=== PATIENT | male | born 1935 | race Caucasian/White ===

== ENCOUNTER 2018-09-26 17:59 | Emergency (ER) | payer MEDICARE, OTHER ==
--- NOTE | 2018-09-26 19:02 | EDM.PDOC ---
ED HPI GENERAL MEDICAL PROBLEM - General Chief Complaint: Respiratory Problem Stated Complaint: POSSIBLE PNEUMONIA Time Seen by Provider: 09/26/18 18:50 Source of Information: Reports: Patient, Old Records, RN History Limitations: Reports: No Limitations - History of Present Illness INITIAL COMMENTS - FREE TEXT/NARRATIVE: 83 yo male who lives alone presents with mild SOB, weakness and an occasional cough. He was see twice for this in the clinic. The first time he got an "antibiotic that would not affect his INR", but when he was last seen it was felt that he had progressed from bronchitis to pneumonia so he was switched to doxycycline. He has continued to worsen since then so comes here now. No testing was done while in either of his clinic visits. Onset: Gradual Onset Date: 09/19/18 Duration: Day(s):, Getting Worse Location: Reports: Chest Quality: Reports: Sharp (some L flank area pain ? due to coughing) Severity: Moderate Improves with: Reports: Rest Worsens with: Reports: Movement Context: Reports: Other (see HPI) Associated Symptoms: Reports: Shortness of Breath (mild), Weakness. Denies: Nausea/Vomiting, Rash Treatments [employer] UNDERGROUND: Reports: Other (see below) (Robitussin AC and doxycycline) - Related Data Allergies Allergy/AdvReac Type Severity Reaction Status Date / Time No Known Allergies Allergy Verified 09/26/18 18:37 Home Meds: Home Meds Aspirin [Halfprin] 81 mg PO DAILY 08/14/14 [History] Cetirizine HCl [Zyrtec] 10 mg PO ASDIRECTED PRN 08/14/14 [History] Cinnamon Bark [Cinnamon] 1,000 mg PO BID 08/14/14 [History] Insulin Aspart [NovoLOG] 45 unit SQ WITHMEALSANDBED 08/14/14 [History] Insulin Glarg,Human.Rec.Analog [LantUS] 12 unit SUBCUT DAILY 08/14/14 [History] Isosorbide Mononitrate [Imdur] 60 mg PO DAILY 08/14/14 [History] Metoprolol Tartrate 25 mg PO BID 08/14/14 [History] Multivitamin [Multi-Vitamin Daily] 1 each PO DAILY 08/14/14 [History] Nitroglycerin 0.4 mg SL ASDIRECTED PRN 08/14/14 [History] [place]-3 Fatty Acids [Fish Oil] 1,000 mg PO BID 08/14/14 [History] Rosuvastatin [Crestor] 20 mg PO BEDTIME 08/14/14 [History] Ubidecarenone [Co Q-10] 100 mg PO DAILY 08/14/14 [History] Warfarin [Coumadin] 2.5 mg PO DAILY 08/14/14 [History] Codeine/guaiFENesin [Robitussin AC] 10 ml PO Q4H PRN 09/26/18 [History] Doxycycline [Vibramycin] 1 tab PO BID 09/26/18 [History] Liraglutide [Victoza] 1.2 unit SQ DAILY 09/26/18 [History] Losartan [Cozaar] 50 mg PO BEDTIME 09/26/18 [History] Past Medical History Cardiovascular History: Reports: High Cholesterol, Hypertension Respiratory History: Reports: Pneumonia, Recurrent Neurological History: Reports: TIA Endocrine/Metabolic History: Reports: Diabetes, Type II Dermatologic History: Reports: Benign Melanoma - Past Surgical History HEENT Surgical History: Reports: Tonsillectomy Cardiovascular Surgical History: Reports: Coronary Artery Bypass GI Surgical History: Reports: Appendectomy, Cholecystectomy, Colonoscopy, Hernia , Inguinal Social & Family History - Tobacco Use Smoking Status *Q: Never Smoker ED ROS GENERAL - Review of Systems Review Of Systems: See Below Constitutional: Reports: Malaise, Weakness HEENT: Reports: No Symptoms Respiratory: Reports: Shortness of Breath (mild), Cough. Denies: Wheezing, Pleuritic Chest Pain, Sputum, Hemoptysis Cardiovascular: Reports: No Symptoms Endocrine: Reports: No Symptoms GI/Abdominal: Reports: No Symptoms : Reports: No Symptoms Musculoskeletal: Reports: Other (Rib or intercostal muscle pain L flank) Skin: Reports: No Symptoms Neurological: Reports: No Symptoms ED EXAM, GENERAL - Physical Exam Exam: See Below Exam Limited By: No Limitations General Appearance: Alert, WD/WN, No Apparent Distress Eye Exam: Bilateral Eye: Normal Inspection Ears: Other (hearing aids bilat.) Ear Exam: Bilateral Ear: Auricle Normal Nose: Normal Inspection, Normal Mucosa, No Blood Throat/Mouth: Normal Inspection, Normal Lips, Normal Oropharynx, Normal Voice, No Airway Compromise Head: Atraumatic, Normocephalic Neck: Normal Inspection Respiratory/Chest: No Respiratory Distress, No Accessory Muscle Use, Rhonchi (L anterior chest most audible.). No: Rales, Wheezing Cardiovascular: Regular Rate, Rhythm, No Edema Back Exam: Normal Inspection. No: CVA Tenderness (R), CVA Tenderness (L) Extremities: Normal Inspection, Normal Range of Motion, Non-Tender, No Pedal Edema Neurological: Alert, Oriented, CN II-XII Intact, Normal Cognition, No Motor/ Sensory Deficits Psychiatric: Normal Affect, Normal Mood Skin Exam: Warm, Dry, Intact, Normal Color, No Rash Course - Vital Signs Text/Narrative:: Feeling a lot better after our interventions. Last Recorded V/S: Last Vital Signs Temp 37.4 C 09/26/18 18:48 Pulse 96 09/26/18 18:48 Resp 14 09/26/18 18:48 BP 144/76 H 09/26/18 18:48 Pulse Ox 91 L 09/26/18 18:48 Orthostatic Blood Pressure [ 130/61 Standing] Orthostatic Blood Pressure [ 137/60 Sitting] Orthostatic Blood Pressure [ 130/53 Supine] - Orders/Labs/Meds Orders: Active Orders 24 hr Category Date Time Status Orthostatic Vital Signs [RC] ASDIRECTED Care 09/26/18 21:05 Active Labs: Laboratory Tests 09/26/18 09/26/18 09/26/18 Range/Units 19:10 19:10 19:10 WBC 4.2 L (4.5-11.0) K/uL RBC 4.34 (4.30-5.90) M/uL Hgb 13.1 (12.0-15.0) g/dL Hct 40.0 (40.0-54.0) % MCV 92 (80-98) fL MCH 30 (27-31) pg MCHC 33 (32-36) % Plt Count 267 (150-400) K/uL PT 65.0 H (9.5-12.0) sec INR 6.57 H* (0.80-1.20) Sodium 134 L (140-148) mmol/L Potassium 4.9 (3.6-5.2) mmol/L Chloride 101 (100-108) mmol/L Carbon Dioxide 24 (21-32) mmol/L Anion Gap 13.9 (5.0-14.0) mmol/L BUN 31 H (7-18) mg/dL Creatinine 1.9 H (0.8-1.3) mg/dL Est Cr Clr Drug Dosing 31.48 mL/min Estimated GFR (MDRD) 34 L (>60) Glucose 371 H (74-106) mg/dL Calcium 8.9 (8.5-10.1) mg/dL C-Reactive Protein 0.23 (0.0-0.3) mg/dL Urine Color Urine Appearance Urine pH (4.5-8.0) Ur Specific [place] (1.008-1.030) Urine Protein (NEGATIVE) mg/dL Urine Glucose (UA) (NEGATIVE) mg/dL Urine Ketones (NEGATIVE) mg/dL Urine Occult Blood (NEGATIVE) Urine Nitrite (NEGAITVE) Urine Bilirubin (NEGATIVE) Urine Urobilinogen (NORMAL) mg/dL Ur Leukocyte Esterase (NEGATIVE) Urine RBC (0-5) Urine WBC (0-5) Ur Epithelial Cells Amorphous Sediment Urine Bacteria Urine Mucus 09/26/18 Range/Units 20:55 WBC (4.5-11.0) K/uL RBC (4.30-5.90) M/uL Hgb (12.0-15.0) g/dL Hct (40.0-54.0) % MCV (80-98) fL MCH (27-31) pg MCHC (32-36) % Plt Count (150-400) K/uL PT (9.5-12.0) sec INR (0.80-1.20) Sodium (140-148) mmol/L Potassium (3.6-5.2) mmol/L Chloride (100-108) mmol/L Carbon Dioxide (21-32) mmol/L Anion Gap (5.0-14.0) mmol/L BUN (7-18) mg/dL Creatinine (0.8-1.3) mg/dL Est Cr Clr Drug Dosing mL/min Estimated GFR (MDRD) (>60) Glucose (74-106) mg/dL Calcium (8.5-10.1) mg/dL C-Reactive Protein (0.0-0.3) mg/dL Urine Color Yellow Urine Appearance Clear Urine pH 5.0 (4.5-8.0) Ur Specific [place] 1.020 (1.008-1.030) Urine Protein Trace (NEGATIVE) mg/dL Urine Glucose (UA) >1000 H (NEGATIVE) mg/dL Urine Ketones Negative (NEGATIVE) mg/dL Urine Occult Blood Moderate (NEGATIVE) Urine Nitrite Negative (NEGAITVE) Urine Bilirubin Negative (NEGATIVE) Urine Urobilinogen Normal (NORMAL) mg/dL Ur Leukocyte Esterase Negative (NEGATIVE) Urine RBC 5-10 H (0-5) Urine WBC Not seen (0-5) Ur Epithelial Cells Rare Amorphous Sediment Not seen Urine Bacteria Few Urine Mucus Few Meds: Medications Discontinued Medications Generic Name Dose Route Start Last Admin Trade Name Carlita PRN Reason Stop Dose Admin Sodium Chloride 1,000 mls @ 1,000 mls/hr 09/26/18 19:41 09/26/18 20:09 Normal Saline IV 09/26/18 20:40 1,000 mls/hr .BOLUS ONE Administration Sodium Chloride 1,000 mls @ 1,000 mls/hr 09/26/18 21:24 09/26/18 21:29 Normal Saline IV 09/26/18 22:23 1,000 mls/hr .BOLUS ONE Administration Insulin Human Regular 14 unit 09/26/18 19:42 09/26/18 20:00 Humulin R SUBCUT 09/26/18 19:43 14 unit ONETIME ONE Administration Insulin Human Regular 20 unit 09/26/18 21:16 09/26/18 21:24 Humulin R SUBCUT 09/26/18 21:17 20 unit ONETIME ONE Administration - Radiology Interpretation Free Text/Narrative:: CXR- Departure - Departure Time of Disposition: 23:20 Disposition: Home, Self-Care 01 Condition: Fair Clinical Impression: Elevated blood sugar, Mild dehydration, Bronchitis - Discharge Information *PRESCRIPTION DRUG MONITORING PROGRAM REVIEWED*: No *COPY OF PRESCRIPTION DRUG MONITORING REPORT IN PATIENT LUPE: No Instructions: Hyperglycemia, [id number] Referrals: Gentry Villegas MD [Primary Care Provider] - Forms: ED Department Discharge Additional Instructions: Finish your doxycycline. See your doctor for recheck early next week. Watch your blood sugars closely. Drink ample fluids. Return as needed. - My Orders Last 24 Hours: My Active Orders 09/26/18 21:05 Orthostatic Vital Signs [RC] ASDIRECTED - Assessment/Plan Last 24 Hours: My Active Orders 09/26/18 21:05 Orthostatic Vital Signs [RC] ASDIRECTED
[2018-09-26] MEDS ORDERED: Sodium Chloride 0.9% 1,000 ML IV ONE ×2 (19:41→21:24)
[2018-09-26] MEDS ORDERED: Insulin Regular, Human 100 Units/ML 3 ML Vial SUBCUT ONE ×2 (19:42→21:16)
--- NOTE | 2018-09-26 20:41 | CRLCR ---
CHEST 2 VIEWS INDICATION: Enqax-po-rbbbck and weak. IMPRESSION: Sternotomy. Heart is upper normal size. Vascularity is normal. Lateral view is rotated. Lungs are clear. No pneumothorax or pleural effusion. Dictated by Jaya Ortiz MD @ Sep 26 2018 8:39PM Signed by Dr. Jaya Ortiz @ Sep 26 2018 8:40PM
[2018-09-26 23:44] VITALS: BP 138/64
== END 2018-09-26 23:30 | disposition home or self-care (01) ==
LOC: JP.ED 17:59
DX: J40 Bronchitis, not specified as acute or chronic (principal); E86.0 Dehydration; E11.9 Type 2 diabetes mellitus without complications; I10 Essential (primary) hypertension; E78.00 Pure hypercholesterolemia, unspecified; Z86.73 Personal history of transient ischemic attack (TIA), and cerebral infarction without residual deficits; Z79.4 Long term (current) use of insulin; Z79.82 Long term (current) use of aspirin; Z79.899 Other long term (current) drug therapy
CPT/HCPCS: 36415; 71046; 80048; 81001; 82962; 85027; 85610; 86140; 96360; 96361; 99285; J1815; J7030; 99283

== ENCOUNTER 2021-07-20 11:57 | Emergency (ER) | payer MEDICARE, OTHER ==
[2021-07-20 13:05] LABS: TROPONIN I HIGH SENSITIVITY 24.5 pg/mL (<=60.3)
[2021-07-20 14:31] VITALS: BP 155/74; PULSE 82
== END 2021-07-20 14:31 | disposition home or self-care (01) ==
LOC: JP.ED 11:57
DX: R07.89 Other chest pain (principal); I48.91 Unspecified atrial fibrillation; E78.00 Pure hypercholesterolemia, unspecified; I10 Essential (primary) hypertension; E11.9 Type 2 diabetes mellitus without complications; Z86.73 Personal history of transient ischemic attack (TIA), and cerebral infarction without residual deficits; Z79.82 Long term (current) use of aspirin; Z79.4 Long term (current) use of insulin; Z79.899 Other long term (current) drug therapy; Z79.01 Long term (current) use of anticoagulants
CPT/HCPCS: 36415; 71046; 71046-26; 80048; 84484; 85027; 85379; 93005; 99283; 99285-25

== ENCOUNTER 2021-12-01 20:46 | Emergency (ER) | payer MEDICARE, OTHER ==
[2021-12-01] MEDS ORDERED: Sodium Chloride 0.9% 10 ML Syringe FLUSH PRN (20:59)
[2021-12-01] MEDS ORDERED: Sodium Chloride 0.9% 500 ML IV ONE (23:04)
[2021-12-02 00:04] VITALS: BP 158/72; PULSE 107
[2021-12-02] MEDS ORDERED: Nitrofurantoin Monohydrate/Macrocrystalline 100 MG Cap PO ONE (00:05)
== END 2021-12-02 00:24 | disposition home or self-care (01) ==
LOC: JP.ED 20:46
DX: S00.03XA Contusion of scalp, initial encounter (principal); S30.1XXA Contusion of abdominal wall, initial encounter; N30.01 Acute cystitis with hematuria; E11.22 Type 2 diabetes mellitus with diabetic chronic kidney disease; I12.9 Hypertensive chronic kidney disease with stage 1 through stage 4 chronic kidney disease, or unspecified chronic kidney disease; N18.32 Chronic kidney disease, stage 3b; E87.5 Hyperkalemia; I48.91 Unspecified atrial fibrillation; E78.00 Pure hypercholesterolemia, unspecified; Z86.73 Personal history of transient ischemic attack (TIA), and cerebral infarction without residual deficits; Z79.82 Long term (current) use of aspirin; Z79.4 Long term (current) use of insulin; Z79.01 Long term (current) use of anticoagulants; Z79.899 Other long term (current) drug therapy; W01.198A Fall on same level from slipping, tripping and stumbling with subsequent striking against other object, initial encounter; Y92.008 Other place in unspecified non-institutional (private) residence as the place of occurrence of the external cause
CPT/HCPCS: 36415; 70450; 71045; 80048; 81001; 82947; 85025; 85610; 87086; 87088; 87186; 99284; A9270; J3490; J7040

== ENCOUNTER 2021-12-02 18:24 | Inpatient (IN) | payer MEDICARE, OTHER ==
[2021-12-02] MEDS ORDERED: Sodium Chloride 0.9% 10 ML Syringe FLUSH PRN (20:24)
[2021-12-02] MEDS ORDERED: Ondansetron 4 MG/2 ML SDV IVPUSH ONE (20:26)
[2021-12-02] MEDS ORDERED: cefTRIAXone 1 GM in Sodium Chloride 0.9% 50 ML IV ONE (20:26)
[2021-12-02] MEDS: Sodium Chloride 0.9% 1,000 ML IV ONE ×2 (21:21→23:50)
[2021-12-02 21:35] LABS: ESTIMATED GFR 29 mL/min (>60)
[2021-12-03] MEDS ORDERED: Ondansetron 4 MG Tab.DIS PO PRN (00:45)
[2021-12-03] MEDS ORDERED: Melatonin 3 MG Tab PO PRN (00:45)
[2021-12-03] MEDS ORDERED: Ondansetron 4 MG/2 ML SDV IV PRN (00:45)
[2021-12-03] MEDS ORDERED: Magnesium Hydroxide 400 MG/5 ML Susp 30 ML Cup PO PRN (00:45)
[2021-12-03] MEDS ORDERED: Acetaminophen 325 MG Tab PO PRN (00:45)
[2021-12-03] MEDS ORDERED: Codeine/guaiFENesin 10-100 MG/5 ML Syrup 5 ML Cup PO PRN (00:45)
[2021-12-03] MEDS ORDERED: Pantoprazole 40 MG Vial ONE (00:58)
[2021-12-03] MEDS ORDERED: Pantoprazole 40 MG Vial IV ONE (01:00)
[2021-12-03] MEDS: Sodium Chloride 0.9% 1,000 ML IV SCH ×2 (01:06→09:38)
[2021-12-03] MEDS: Insulin Lispro 100 Unit/ML 3 ML KwikPen SUBCUT SCH ×4 (08:13→21:41)
[2021-12-03] MEDS: Lactobacillus Rhamnosus GG (Probiotic) Cap PO SCH ×2 (09:31→20:07)
[2021-12-03] MEDS: Aspirin 81 MG Tab.EC PO SCH (09:31)
[2021-12-03] MEDS: Isosorbide Mononitrate 30 MG Tab.ER PO SCH (09:32)
[2021-12-03] MEDS: Metoprolol Tartrate 25 MG Tab PO SCH ×2 (09:33→20:09)
[2021-12-03] MEDS: Insulin Glargine,Human Rec. Analog 100 Units/ML 3 ML Pen SUBCUT SCH (10:04)
[2021-12-03] MEDS: Rosuvastatin 10 MG Tab PO SCH (20:07)
[2021-12-03] MEDS: Losartan 25 MG Tab PO SCH (20:09)
[2021-12-03] MEDS: cefTRIAXone 1 GM in Sodium Chloride 0.9% 50 ML IV SCH (20:10)
[2021-12-03] MEDS: Pantoprazole 40 MG Vial IV SCH (20:10)
[2021-12-04] MEDS: Insulin Lispro 100 Unit/ML 3 ML KwikPen SUBCUT SCH ×4 (08:37→21:09)
[2021-12-04] MEDS: Metoprolol Tartrate 25 MG Tab PO SCH ×2 (08:38→20:01)
[2021-12-04] MEDS: Lactobacillus Rhamnosus GG (Probiotic) Cap PO SCH ×2 (08:39→20:03)
[2021-12-04] MEDS: Aspirin 81 MG Tab.EC PO SCH (08:39)
[2021-12-04] MEDS: Isosorbide Mononitrate 30 MG Tab.ER PO SCH (08:39)
[2021-12-04] MEDS: Insulin Glargine,Human Rec. Analog 100 Units/ML 3 ML Pen SUBCUT SCH (08:40)
[2021-12-04] MEDS: Warfarin 2.5 MG Tab PO SCH (13:37)
[2021-12-04] MEDS ORDERED: Albuterol 0.083% 2.5 MG/3 ML Neb Soln NEB PRN (17:47)
[2021-12-04] MEDS: Budesonide 0.5 MG/2 ML Neb Susp NEB SCH (20:01)
[2021-12-04] MEDS: Pantoprazole 40 MG Vial IV SCH (20:01)
[2021-12-04] MEDS: Albuterol/Ipratropium 3.0-0.5 MG/3 ML Neb Soln NEB SCH (20:01)
[2021-12-04] MEDS: cefTRIAXone 1 GM in Sodium Chloride 0.9% 50 ML IV SCH (20:01)
[2021-12-04] MEDS: Losartan 25 MG Tab PO SCH (20:02)
[2021-12-04] MEDS: Rosuvastatin 10 MG Tab PO SCH (20:03)
[2021-12-05] MEDS: Budesonide 0.5 MG/2 ML Neb Susp NEB SCH ×2 (07:07→20:15)
[2021-12-05] MEDS: Albuterol/Ipratropium 3.0-0.5 MG/3 ML Neb Soln NEB SCH ×4 (07:07→20:15)
[2021-12-05] MEDS: Metoprolol Tartrate 25 MG Tab PO SCH ×2 (08:11→20:05)
[2021-12-05] MEDS: Isosorbide Mononitrate 30 MG Tab.ER PO SCH (08:12)
[2021-12-05] MEDS: Aspirin 81 MG Tab.EC PO SCH (08:12)
[2021-12-05] MEDS: Insulin Glargine,Human Rec. Analog 100 Units/ML 3 ML Pen SUBCUT SCH (08:12)
[2021-12-05] MEDS: Lactobacillus Rhamnosus GG (Probiotic) Cap PO SCH ×2 (08:12→20:01)
[2021-12-05] MEDS: Insulin Lispro 100 Unit/ML 3 ML KwikPen SUBCUT SCH ×4 (08:13→21:44)
[2021-12-05] MEDS ORDERED: Insulin Lispro 100 Unit/ML 3 ML KwikPen SUBCUT ONE ×3 (12:24→21:40)
[2021-12-05] MEDS: Warfarin 2.5 MG Tab PO SCH (12:59)
[2021-12-05] MEDS ORDERED: 50% Dextrose in Water 50 ML Syringe IVPUSH PRN (17:35)
[2021-12-05] MEDS ORDERED: Glucagon,Human Recombinant 1 MG Vial IM PRN (17:35)
[2021-12-05] MEDS: Pantoprazole 40 MG Tab.CR PO SCH (17:50)
[2021-12-05] MEDS: Rosuvastatin 10 MG Tab PO SCH (20:01)
[2021-12-05] MEDS: Losartan 25 MG Tab PO SCH (20:02)
[2021-12-05] MEDS: Fluticasone NASAL Spray 16 GM Bottle NASBOTH SCH (20:05)
[2021-12-05] MEDS: cefTRIAXone 1 GM in Sodium Chloride 0.9% 50 ML IV SCH (20:06)
[2021-12-06] MEDS: Albuterol/Ipratropium 3.0-0.5 MG/3 ML Neb Soln NEB SCH ×4 (06:58→21:23)
[2021-12-06] MEDS: Budesonide 0.5 MG/2 ML Neb Susp NEB SCH ×2 (06:58→21:24)
[2021-12-06] MEDS: Lactobacillus Rhamnosus GG (Probiotic) Cap PO SCH ×2 (08:30→21:25)
[2021-12-06] MEDS: Metoprolol Tartrate 25 MG Tab PO SCH ×2 (08:30→21:28)
[2021-12-06] MEDS: Isosorbide Mononitrate 30 MG Tab.ER PO SCH (08:33)
[2021-12-06] MEDS: Fluticasone NASAL Spray 16 GM Bottle NASBOTH SCH ×2 (08:33→21:25)
[2021-12-06] MEDS: Aspirin 81 MG Tab.EC PO SCH (08:33)
[2021-12-06] MEDS: Insulin Lispro 100 Unit/ML 3 ML KwikPen SUBCUT SCH ×5 (08:38→21:29)
[2021-12-06] MEDS: Insulin Glargine,Human Rec. Analog 100 Units/ML 3 ML Pen SUBCUT SCH (08:39)
[2021-12-06] MEDS: Warfarin 2.5 MG Tab PO SCH (13:18)
[2021-12-06] MEDS: Pantoprazole 40 MG Tab.CR PO SCH (17:53)
[2021-12-06] MEDS: Losartan 25 MG Tab PO SCH (21:25)
[2021-12-06] MEDS: Rosuvastatin 10 MG Tab PO SCH (21:28)
[2021-12-06] MEDS: cefTRIAXone 1 GM in Sodium Chloride 0.9% 50 ML IV SCH (21:46)
[2021-12-06] MEDS: Cephalexin 250 MG Cap PO SCH (22:38)
[2021-12-07] MEDS: Albuterol/Ipratropium 3.0-0.5 MG/3 ML Neb Soln NEB SCH ×2 (06:58→10:32)
[2021-12-07] MEDS: Budesonide 0.5 MG/2 ML Neb Susp NEB SCH (06:58)
[2021-12-07 07:24] VITALS: BP 111/65
[2021-12-07] MEDS: Lactobacillus Rhamnosus GG (Probiotic) Cap PO SCH (08:20)
[2021-12-07] MEDS: Isosorbide Mononitrate 30 MG Tab.ER PO SCH (08:20)
[2021-12-07] MEDS: Aspirin 81 MG Tab.EC PO SCH (08:20)
[2021-12-07] MEDS: Fluticasone NASAL Spray 16 GM Bottle NASBOTH SCH (08:20)
[2021-12-07] MEDS: Cephalexin 250 MG Cap PO SCH (08:21)
[2021-12-07] MEDS: Metoprolol Tartrate 25 MG Tab PO SCH (08:21)
[2021-12-07 08:22] VITALS: PULSE 78
[2021-12-07] MEDS: Insulin Lispro 100 Unit/ML 3 ML KwikPen SUBCUT SCH ×2 (08:26→12:35)
[2021-12-07] MEDS: Insulin Glargine,Human Rec. Analog 100 Units/ML 3 ML Pen SUBCUT SCH (08:27)
[2021-12-07] MEDS: Warfarin 2.5 MG Tab PO SCH (12:33)
== END 2021-12-07 13:30 | disposition home or self-care (01) | DRG 690 ==
LOC: JP.ED 18:24 → JP.MS 23:50
PROVIDERS: ADMIT Internal Medicine; ATTEND Hospitalist
DX: N30.01 Acute cystitis with hematuria (principal); I48.20 Chronic atrial fibrillation, unspecified; E11.22 Type 2 diabetes mellitus with diabetic chronic kidney disease; I25.10 Atherosclerotic heart disease of native coronary artery without angina pectoris; N18.32 Chronic kidney disease, stage 3b; I48.91 Unspecified atrial fibrillation; R79.1 Abnormal coagulation profile; Z20.822 Contact with and (suspected) exposure to COVID-19; G47.33 Obstructive sleep apnea (adult) (pediatric); E78.00 Pure hypercholesterolemia, unspecified; B96.1 Klebsiella pneumoniae [K. pneumoniae] as the cause of diseases classified elsewhere; I12.9 Hypertensive chronic kidney disease with stage 1 through stage 4 chronic kidney disease, or unspecified chronic kidney disease; Z87.01 Personal history of pneumonia (recurrent); Z86.73 Personal history of transient ischemic attack (TIA), and cerebral infarction without residual deficits; Z85.820 Personal history of malignant melanoma of skin; Z86.19 Personal history of other infectious and parasitic diseases; Z90.89 Acquired absence of other organs; Z79.82 Long term (current) use of aspirin; Z79.4 Long term (current) use of insulin; Z79.899 Other long term (current) drug therapy; Z79.01 Long term (current) use of anticoagulants; Z88.8 Allergy status to other drugs, medicaments and biological substances; Z95.1 Presence of aortocoronary bypass graft; Z90.49 Acquired absence of other specified parts of digestive tract
CPT/HCPCS: 36415; 80053; 85025; 85610; 96361; 96365; 96375; 99285; J0696; J2405; J3490; J7030; U0002; 80048; 82947; 85027; 94640; 97110-GP; 97162-GP; 97530-GP; 97535-GP; A9270-GY; C9113; J1815; J1815-GY; J7620

== ENCOUNTER 2025-01-11 16:24 | Inpatient (IN) | payer MEDICARE, OTHER ==
[2025-01-11] MEDS ORDERED: 50% Dextrose in Water 50 ML Syringe IVPUSH PRN ×2 (16:33→17:14)
[2025-01-11 16:46] LABS: BASOPHILS ABSOLUTE AUTO 0.10 K/uL (0.00-0.10); BASOPHILS PERCENT AUTO 1.1 % (0.1-1.3); EOSINOPHILS ABSOLUTE AUTO 0.32 K/uL (0.00-0.40); EOSINOPHILS PERCENT AUTO 3.6 % (0.0-5.4); IMMATURE GRAN ABSOLUTE AUTO 0.08 K/uL (0.00-0.23); IMMATURE GRAN PERCENT AUTO 0.9 % (0.0-0.7); LYMPHOCYTES ABSOLUTE AUTO 2.12 K/uL (0.8-3.3); LYMPHOCYTES PERCENT AUTO 23.7 % (11.4-47.7); MONOCYTES ABSOLUTE AUTO 0.90 K/uL (0.20-0.90); MONOCYTES PERCENT AUTO 10.0 % (3.3-12.6); NEUTROPHILS ABSOLUTE AUTO 5.44 K/uL (1.0-7.6); NEUTROPHILS PERCENT AUTO 60.7 % (40.0-78.1); PLATELET COUNT,PLT 287 K/uL (130-375); RED BLOOD CELL COUNT 3.70 M/uL (4.14-5.76); WHITE BLOOD CELL COUNT,WBC 9.0 K/uL (3.2-11.0)
[2025-01-11 17:06] LABS: A/G RATIO 0.8 (1.2-2.2); ALANINE AMINOTRANSFERASE,ALT 14 U/L (12-78); ASPARTATE AMNIOTRANSFERASE,AST 16 U/L (15-37); BILIRUBIN TOTAL 0.3 mg/dL (0.2-1.0); BLOOD UREA NITROGEN,BUN 48 mg/dL (7-18); CARBON DIOXIDE,CO2 24 mmol/L (21-32); CHLORIDE,CL 103 mmol/L (100-108); CREATININE 3.1 mg/dL (0.8-1.3); EST CRCL DRUG DOSING (CG) 16.79 mL/min; ESTIMATED GFR 19 mL/min (>60); GLUCOSE RANDOM 311 mg/dL (74-106); PROTEIN TOTAL,TP 7.5 g/dL (6.4-8.2); SODIUM,NA 135 mmol/L (140-148)
[2025-01-11 17:08] LABS: POTASSIUM,K 6.1 mmol/L (3.6-5.2)
[2025-01-11] MEDS ORDERED: Sodium Chloride 0.9% 10 ML Syringe FLUSH PRN (17:14)
[2025-01-11 17:16] LABS: INR 1.8
[2025-01-11] MEDS: Insulin Lispro 100 Unit/ML 3 ML KwikPen SUBCUT SCH ×2 (17:53→17:54)
[2025-01-11] MEDS: 50% Dextrose in Water 50 ML Syringe IVPUSH ONE (17:55)
[2025-01-11] MEDS: Insulin Regular, Human 100 Units/ML 10 ML Vial IVPUSH ONE (17:55)
[2025-01-11] MEDS: Insulin Glargine,Human Rec. Analog 100 Units/ML 3 ML Pen SUBCUT SCH (21:28)
[2025-01-12 05:49] LABS: BASOPHILS ABSOLUTE AUTO 0.09 K/uL (0.00-0.10); BASOPHILS PERCENT AUTO 1.1 % (0.1-1.3); EOSINOPHILS ABSOLUTE AUTO 0.37 K/uL (0.00-0.40); EOSINOPHILS PERCENT AUTO 4.6 % (0.0-5.4); IMMATURE GRAN ABSOLUTE AUTO 0.07 K/uL (0.00-0.23); IMMATURE GRAN PERCENT AUTO 0.9 % (0.0-0.7); LYMPHOCYTES ABSOLUTE AUTO 2.57 K/uL (0.8-3.3); LYMPHOCYTES PERCENT AUTO 31.7 % (11.4-47.7); MONOCYTES ABSOLUTE AUTO 0.94 K/uL (0.20-0.90); MONOCYTES PERCENT AUTO 11.6 % (3.3-12.6); NEUTROPHILS ABSOLUTE AUTO 4.06 K/uL (1.0-7.6); NEUTROPHILS PERCENT AUTO 50.1 % (40.0-78.1); PLATELET COUNT,PLT 257 K/uL (130-375); RED BLOOD CELL COUNT 3.23 M/uL (4.14-5.76); WHITE BLOOD CELL COUNT,WBC 8.1 K/uL (3.2-11.0)
[2025-01-12 06:19] LABS: A/G RATIO 0.8 (1.2-2.2); ALANINE AMINOTRANSFERASE,ALT 13 U/L (12-78); ASPARTATE AMNIOTRANSFERASE,AST 14 U/L (15-37); BILIRUBIN TOTAL 0.3 mg/dL (0.2-1.0); BLOOD UREA NITROGEN,BUN 47 mg/dL (7-18); CARBON DIOXIDE,CO2 23 mmol/L (21-32); CHLORIDE,CL 105 mmol/L (100-108); CREATININE 2.9 mg/dL (0.8-1.3); EST CRCL DRUG DOSING (CG) 17.95 mL/min; ESTIMATED GFR 20 mL/min (>60); GLUCOSE RANDOM 125 mg/dL (74-106); POTASSIUM,K 5.0 mmol/L (3.6-5.2); PROTEIN TOTAL,TP 6.3 g/dL (6.4-8.2); SODIUM,NA 136 mmol/L (140-148)
[2025-01-12 12:07] LABS: PLATELET COUNT,PLT 261.0 K/uL (130-375); RED BLOOD CELL COUNT 3.32 M/uL (4.14-5.76); WHITE BLOOD CELL COUNT,WBC 9.1 K/uL (3.2-11.0)
[2025-01-12] MEDS: Warfarin** 1 MG TABLET PO ONE (13:40)
[2025-01-13 05:53] LABS: BASOPHILS ABSOLUTE AUTO 0.10 K/uL (0.00-0.10); BASOPHILS PERCENT AUTO 1.1 % (0.1-1.3); EOSINOPHILS ABSOLUTE AUTO 0.40 K/uL (0.00-0.40); EOSINOPHILS PERCENT AUTO 4.5 % (0.0-5.4); IMMATURE GRAN ABSOLUTE AUTO 0.07 K/uL (0.00-0.23); IMMATURE GRAN PERCENT AUTO 0.8 % (0.0-0.7); LYMPHOCYTES ABSOLUTE AUTO 2.73 K/uL (0.8-3.3); LYMPHOCYTES PERCENT AUTO 30.4 % (11.4-47.7); MONOCYTES ABSOLUTE AUTO 0.89 K/uL (0.20-0.90); MONOCYTES PERCENT AUTO 9.9 % (3.3-12.6); NEUTROPHILS ABSOLUTE AUTO 4.78 K/uL (1.0-7.6); NEUTROPHILS PERCENT AUTO 53.3 % (40.0-78.1); PLATELET COUNT,PLT 268 K/uL (130-375); RED BLOOD CELL COUNT 3.29 M/uL (4.14-5.76); WHITE BLOOD CELL COUNT,WBC 9.0 K/uL (3.2-11.0)
[2025-01-13 06:10] LABS: INR 2.0
[2025-01-13 06:15] LABS: A/G RATIO 0.8 (1.2-2.2); ALANINE AMINOTRANSFERASE,ALT 12 U/L (12-78); ASPARTATE AMNIOTRANSFERASE,AST 18 U/L (15-37); BILIRUBIN TOTAL 0.2 mg/dL (0.2-1.0); BLOOD UREA NITROGEN,BUN 52 mg/dL (7-18); CARBON DIOXIDE,CO2 23 mmol/L (21-32); CHLORIDE,CL 103 mmol/L (100-108); CREATININE 3.0 mg/dL (0.8-1.3); EST CRCL DRUG DOSING (CG) 17.35 mL/min; ESTIMATED GFR 19 mL/min (>60); GLUCOSE RANDOM 146 mg/dL (74-106); POTASSIUM,K 4.5 mmol/L (3.6-5.2); PROTEIN TOTAL,TP 6.5 g/dL (6.4-8.2); SODIUM,NA 136 mmol/L (140-148)
[2025-01-13 11:50] VITALS: BP 113/54; PULSE 72
[2025-01-13] MEDS: Warfarin** 1 MG TABLET PO SCH (13:12)
[2025-01-14] MEDS ORDERED: Warfarin** 1 MG TABLET PO SCH (13:00)
== END 2025-01-13 15:30 | disposition home or self-care (01) | DRG 194 ==
LOC: JP.ICU 16:24
PROVIDERS: ADMIT Student in an Organized Health Care Education/Training Program; ATTEND Student in an Organized Health Care Education/Training Program
DX: J18.9 Pneumonia, unspecified organism (principal); N18.4 Chronic kidney disease, stage 4 (severe); Z66 Do not resuscitate; I12.9 Hypertensive chronic kidney disease with stage 1 through stage 4 chronic kidney disease, or unspecified chronic kidney disease; I48.91 Unspecified atrial fibrillation; I25.10 Atherosclerotic heart disease of native coronary artery without angina pectoris; E87.5 Hyperkalemia; D64.9 Anemia, unspecified; E78.00 Pure hypercholesterolemia, unspecified; G47.30 Sleep apnea, unspecified; E11.9 Type 2 diabetes mellitus without complications; Z79.01 Long term (current) use of anticoagulants; Z85.820 Personal history of malignant melanoma of skin; Z98.49 Cataract extraction status, unspecified eye; Z90.49 Acquired absence of other specified parts of digestive tract; Z79.82 Long term (current) use of aspirin; Z79.4 Long term (current) use of insulin; Z86.73 Personal history of transient ischemic attack (TIA), and cerebral infarction without residual deficits; Z79.899 Other long term (current) drug therapy; Z88.8 Allergy status to other drugs, medicaments and biological substances; Z98.890 Other specified postprocedural states
CPT/HCPCS: 36415; 71045; 71045-26; 80053; 82947; 84132; 85025; 85027; 85610; 86140; 87070; 87077; 87186; 87205; 93010; 97161-GP; 97530-GP; 99223; 99232; 99238; A9270-GY; J0696; J1815-GY

== ENCOUNTER 2025-01-18 18:32 | Emergency (ER) | payer MEDICARE, OTHER ==
[2025-01-18 18:48] VITALS: BP 136/66; PULSE 85
[2025-01-18 19:25] LABS: BASOPHILS ABSOLUTE AUTO 0.09 K/uL (0.00-0.10); BASOPHILS PERCENT AUTO 1.2 % (0.1-1.3); EOSINOPHILS ABSOLUTE AUTO 0.24 K/uL (0.00-0.40); EOSINOPHILS PERCENT AUTO 3.2 % (0.0-5.4); IMMATURE GRAN ABSOLUTE AUTO 0.05 K/uL (0.00-0.23); IMMATURE GRAN PERCENT AUTO 0.7 % (0.0-0.7); LYMPHOCYTES ABSOLUTE AUTO 2.35 K/uL (0.8-3.3); LYMPHOCYTES PERCENT AUTO 31.0 % (11.4-47.7); MONOCYTES ABSOLUTE AUTO 1.08 K/uL (0.20-0.90); MONOCYTES PERCENT AUTO 14.3 % (3.3-12.6); NEUTROPHILS ABSOLUTE AUTO 3.76 K/uL (1.0-7.6); NEUTROPHILS PERCENT AUTO 49.6 % (40.0-78.1); PLATELET COUNT,PLT 275 K/uL (130-375); RED BLOOD CELL COUNT 3.55 M/uL (4.14-5.76); WHITE BLOOD CELL COUNT,WBC 7.6 K/uL (3.2-11.0)
[2025-01-18 19:49] LABS: A/G RATIO 0.9 (1.2-2.2); ALANINE AMINOTRANSFERASE,ALT 16 U/L (12-78); ASPARTATE AMNIOTRANSFERASE,AST 15 U/L (15-37); BILIRUBIN TOTAL 0.3 mg/dL (0.2-1.0); BLOOD UREA NITROGEN,BUN 51 mg/dL (7-18); CARBON DIOXIDE,CO2 27 mmol/L (21-32); CHLORIDE,CL 105 mmol/L (100-108); CREATININE 2.7 mg/dL (0.8-1.3); EST CRCL DRUG DOSING (CG) 19.28 mL/min; ESTIMATED GFR 22 mL/min (>60); GLUCOSE RANDOM 204 mg/dL (74-106); POTASSIUM,K 5.0 mmol/L (3.6-5.2); PROTEIN TOTAL,TP 6.9 g/dL (6.4-8.2); SODIUM,NA 139 mmol/L (140-148)
[2025-01-18 19:52] LABS: LACTIC ACID 1.6 mmol/L (0.4-2.0)
== END 2025-01-18 20:41 | disposition home or self-care (01) ==
LOC: JP.ED 18:32
DX: J18.9 Pneumonia, unspecified organism (principal); I48.91 Unspecified atrial fibrillation; I12.9 Hypertensive chronic kidney disease with stage 1 through stage 4 chronic kidney disease, or unspecified chronic kidney disease; N18.4 Chronic kidney disease, stage 4 (severe); E11.22 Type 2 diabetes mellitus with diabetic chronic kidney disease; E78.00 Pure hypercholesterolemia, unspecified; Z90.49 Acquired absence of other specified parts of digestive tract; Z88.8 Allergy status to other drugs, medicaments and biological substances; Z79.82 Long term (current) use of aspirin; Z79.4 Long term (current) use of insulin; Z79.01 Long term (current) use of anticoagulants; Z79.899 Other long term (current) drug therapy
CPT/HCPCS: 36415; 80053; 83605; 85025; 86140; 99284